=== PATIENT | female | born 2000 | race Caucasian/White ===

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

== ENCOUNTER 2022-01-06 00:47 | Emergency (ER) | payer OTHER ==
[~2022-01-06] VITALS: Ht 165.1 cm; Wt 74.0 kg
== END 2022-01-06 02:50 | disposition home or self-care (01) ==
LOC: ED 00:47
DX: S60.212A Contusion of left wrist, initial encounter (principal); Z91.030 Bee allergy status; W19.XXXA Unspecified fall, initial encounter; W22.8XXA Striking against or struck by other objects, initial encounter
CPT/HCPCS: 73110; 99283-25